=== PATIENT | male | born 1955 | race Caucasian/White ===

== ENCOUNTER 2016-05-09 11:20 | Day surgery (SDC) | payer BC ==
[~2016-05-09] VITALS: Ht 188 cm; Wt 126.0 kg
[~2016-05-09 11:20] MED LIST: LEVO-T200 MCG PO; PROTONIX40 MG PO; ZESTRIL40 MG PO; ZOCOR40 MG PO; ZYLOPRIM100 MG PO
[2016-05-09 12:11] VITALS: BP 120/70
[2016-05-09 14:50] VITALS: BP 134/86
[2016-05-09 15:48] VITALS: BP 150/97
[2016-05-09 16:37] VITALS: BP 135/97
== END 2016-05-09 16:20 | disposition home or self-care (01) ==
LOC: SDC 11:20
PROVIDERS: Urology
DX: N20.1 Calculus of ureter (principal); N35.8 Other urethral stricture; F17.210 Nicotine dependence, cigarettes, uncomplicated; Z83.3 Family history of diabetes mellitus; Z82.49 Family history of ischemic heart disease and other diseases of the circulatory system; Z80.9 Family history of malignant neoplasm, unspecified
CPT/HCPCS: 82365 90; C1876; J0330; J0690; J2250; J2405; J3010; J7050

== ENCOUNTER → 2017-09-02 | Outpatient (CLI) | payer BC | END | disposition home or self-care (01) | LOC: CDC 08:51 | DX: Z01.810 Encounter for preprocedural cardiovascular examination (principal); N35.9 Urethral stricture, unspecified | CPT/HCPCS: 93000 ==